=== PATIENT | male | born 1975 | race Caucasian/White ===

== ENCOUNTER 2020-09-29 10:46 | Emergency (ER) | payer OTHER ==
[~2020-09-29] VITALS: Ht 182.9 cm; Wt 95.5 kg
[~2020-09-29 10:46] MED LIST: FLOMAX 0.40.4 MG/CAP PO; MOTRIN 200200 MG/TAB PO; NORCO 325 MG-51 TAB PO; PERCOCET 325 MG1 TA3 PO; PROBIOTIC ACID1 EAC3 PO; SENOKOT S 50 MG1 TAB PO; ZOFRAN 4MG T4 MG/TAB PO
[2020-09-29 12:30] LABS: COLLECTION METHOD CLEAN CATCH
[2020-09-29 12:38] LABS: MUCOUS Present /lpf; PH 6 (5-8); SQUAMOUS EPITHELIAL 0-2 /hpf; URINE APPEARANCE Clear; URINE BACTERIA None Seen /hpf; URINE BILIRUBIN Negative (NEGATIVE); URINE BLOOD 3+ (NEGATIVE); URINE COLOR Yellow; URINE GLUCOSE Negative (NEGATIVE); URINE KETONE Negative (NEGATIVE); URINE LEUKOCYTE ESTERASE Negative (NEGATIVE); URINE NITRATE Negative (NEGATIVE); URINE PROTEIN(semi-quant) 1+ (NEGATIVE); URINE RBC >50 /hpf; URINE UROBILINOGEN Negative (NEGATIVE)
[2020-09-29 13:00] LABS: BASO % 0.2 % (0.0-2.0); GRAN # 14.5 (1.4-6.5); GRAN % 89.1 % (42.2-75.2); HEMOGLOBIN 15.5 g/dl (13.5-18.0); LYMPH % 5.9 % (20.0-51.0); MEAN CELL VOLUME 92 fl (80.0-100.0); MEAN CORPUSCULAR HEMOGLOBIN 31 pg (27.0-31.0); MEAN CORPUSCULAR HGB CONC 34 g/dl (33.0-37.0); MEAN PLATELET VOLUME 9.9 fl (7.4-10.4); MONO # 0.7 (0.1-0.6); MONO % 4.4 % (1.7-9.3); PLATELET COUNT 241 K/mm3 (130-400); RED BLOOD COUNT 4.99 M/mm3 (4.20-5.60); REDCELL DISTRIBUTION WIDTH-CV 12.4 % (11.5-14.5)
[2020-09-29 13:10] LABS: ALBUMIN 4.7 gm/dL (3.5-5.0); BILIRUBIN,TOTAL 0.7 mg/dL (0.0-1.0); CALCIUM 9.4 mg/dL (8.4-10.2); POTASSIUM 3.7 mmol/L (3.4-5.0); TOTAL PROTEIN 7.9 gm/dL (6.4-8.2)
[2020-09-29] MEDS ORDERED: PYRIDIUM 100MG100 MG PO (18:58)
[2020-09-29] MEDS ORDERED: NORCO 325 MG-51 TAB PO (18:58)
[2020-09-29 19:08] VITALS: TEMP 97.8
[2020-09-29 20:11] VITALS: BP 113/69; PULSE 79
== END 2020-09-29 20:11 | disposition home or self-care (01) ==
LOC: COL.ER 10:46
PROVIDERS: Student in an Organized Health Care Education/Training Program
DX: N13.2 Hydronephrosis with renal and ureteral calculous obstruction (principal); D72.829 Elevated white blood cell count, unspecified
CPT/HCPCS: J0690; J1885; J1956; J2270; J2405; J2704; J3010; J7030; Q9967